=== PATIENT | male | born 2000 | race Caucasian/White ===

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

== ENCOUNTER 2025-06-07 11:48 | Emergency (ER) | payer OTHER ==
[~2025-06-07] VITALS: Ht 172.7 cm; Wt 63.6 kg
[~2025-06-07 11:48] MED LIST: OLAN15TA97 PO
[2025-06-07 11:49] VITALS: TEMP 98.5
--- NOTE | 2025-06-07 13:24 | Physician Documentation ---
History of Present Illness ~ Chief Complaint: Dizziness Stated Complaint: DIZZINESS Time Seen by MD: 13:18 Primary Medical Doctor: n/a HPI 24-year-old male presents to the ED after having an episode of dizziness today. According to the triage nurse the patient flag down [facility] for transport he refused fluids or any other treatment in route. He is not forthcoming regarding his sym ptoms. Denies any headaches denies any nausea vomiting denies any chest pain. Denies any alleviating or exacerbating factors Day of Onset: Jun 07, 2025 Medication Reconciliation Allergies: Coded Allergies: No Known Allergies (Unverified , 06/07/25) Scheduled Olanzapine (Olanzapine), 1 TAB PO HS Past Medical History Past Medical History: No Pertinent History Past Surgical History: noncontributory Alcohol Use: None Drug Use: none Lives with: Mother, Father Lives In: Home Occupation: unemployed Physical Exam Vital Signs: Temperature: 98.5, Source: Temporal, Heart Rate: 88, Respiratory Rate: 18, BP: 104/68, Pulse Oximetry: 99, Weight: 63.640 Oxygen Flow Rate: 0 Progress Results/Orders Results/Orders Vital Signs 06/07/25 11:49 Temp 98.5 Pulse 88 Resp 18 B/P (MAP) 104/68 Pulse Ox 99 O2 Flow Rate 0 Medical Decision Making Additional information obtaine: old records Findings With the I offered to get labs from the patient and pursue further imaging however he declined Differential Dx:Considerations: Include: anemia, CVA, dehydration, dysrhythmia, electrolyte imbalance, encephalopathy, Guillain-[place], hypoglycemia, hypotension, hypovolemia, labyrinthitis, Meniere's disease, myasathenia gravis, myocardial infarction, pulmonary embolus, renal failure, respiratory failure, TIA, VBI, vertigo central, vertigo peripheral, vestibular neuronitis, other Departure Disposition: 01 HOME / SELF CARE / HOMELESS Impression: Primary Impression: Dizziness Condition: Stable Discharge Instructions: Dizziness Referrals: NO PRIMARY CARE PROVIDER (PCP) Signature Scribe Signature: sharyn Attestation: Scribed for Margarito Tejeda Building Rental Manager by Margarito Lomax NP . 06/07/25 13:22 MARGARITO TEJEDA NP Jun 07, 2025 13:24
[2025-06-07 13:46] VITALS: BP 109/73; PULSE 82; RESP 16; O2SAT 99
== END 2025-06-07 13:45 | disposition home or self-care (01) ==
LOC: ER 11:49
DX: R42 Dizziness and giddiness (principal); Z79.899 Other long term (current) drug therapy; Z56.0 Unemployment, unspecified
CPT/HCPCS: 99283